=== PATIENT | male | born 1990 | race Caucasian/White ===

== ENCOUNTER 2024-03-23 19:56 | Emergency (ER) | payer SELFPAY ==
[2024-03-23] VITALS (13 sets, daily range): BP systolic 135–139; BP diastolic 74–82; PULSE 76–89; TEMP 36.8; O2SAT 95–97; BMI 24.4
--- NOTE | 2024-03-23 20:13 | ECG_ITS ---
[facility] Test Date: 2024-03-23 Pat Name: YOLANDA KRAMER Department: Room: - Gender: Male Method Consultant: : 1990 Requested By: SAVANNAH HART Order Number: [id number] Reading MD: MARJORIE HENRY Measurements Intervals [place] Rate: 85 P: 54 IN: 160 QRS: 74 QRSD: 90 T: 36 QT: 336 QTc: 378 Interpretive Statements 1100 Sinus rhythm 9110 normal ECG Compared to ECG 02/10/2018 00:58:56 No significant changes Electronically Signed On 03-24-2024 7:22:42 EDT by MARJORIE HENRY
--- NOTE | 2024-03-23 20:17 | ED.CHESTPAI1 ---
Documented by User: RODOLFO Thomas 03/23/24 21:11 HPI - Chest Pain General Chief Complaint: Chest Pain Stated Complaint: Chest Pain Time Seen by Provider: 03/23/24 19:58 Source: patient Mode of arrival: walk-in Limitations: no limitations History of Present Illness HPI narrative: Patient is a 33-year-old male who presents to the emergency department for multiple complaints over the last 2 days. He states yesterday he developed body aches, headache and subjective fever. He states today he noted right-sided chest pain that is worse with deep breathing. He denies any significant cough, he has had no sputum production or hemoptysis. He denies abdominal pain, vomiting or diarrhea. He has no history of any heart or lung problems that he is aware of. Related Data Previous Rx's ?Medication ?Instructions ?Recorded ketorolac 10 mg tablet 10 mg PO TID PRN pain #10 tabs 03/23/24 prednisone 20 mg tablet 60 mg (3 x 20 mg) PO DAILY 3 days 03/23/24 #9 tabs prednisone 20 mg tablet 60 mg (3 x 20 mg) PO DAILY 3 days 03/23/24 #9 tabs Allergies Allergy/AdvReac Type Severity Reaction Status Date / Time No Known Drug Allergies Allergy Verified 03/23/24 20:03 Review of Systems ROS Constitutional Denies: fever or chills Ears, nose, mouth, and throat Denies: throat pain or nasal congestion Cardiovascular Reports: chest pain Respiratory Denies: shortness of breath or cough Gastrointestinal Denies: abdominal pain, nausea or vomiting Musculoskeletal Denies: back pain or neck pain Integumentary/Breast Denies: rash Neurological Reports: headache; Denies: numbness in extremities or weakness in extremities Hematologic/Lymphatic Denies: easy bruising or easy bleeding Exam Narrative Exam Narrative: Gen.: Awake, alert, in no distress Head: Normocephalic, atraumatic ENT: Moist mucous membranes Respiratory: No respiratory distress, lungs clear bilaterally; no rashes or color change to the chest wall Cardio: Regular rate and rhythm Gastrointestinal: Abdomen is soft, nondistended and nontender to palpation Extremities: Moves extremities equally, no pedal edema Psych: Normal mood and affect Neuro: No focal neuro deficit Skin: Warm, dry, intact Constitutional Vital Signs, click to edit/add: Last Vital Signs Temp 98.3 F 03/23/24 20:00 Pulse 77 03/23/24 21:29 Resp 23 H 03/23/24 21:20 BP 139/74 03/23/24 21:29 Pulse Ox 96 03/23/24 21:29 O2 Del Method Room Air 03/23/24 20:00 Course Vital Signs Vital signs: Vital Signs Temperature 98.3 F 03/23/24 20:00 Pulse Rate 85 03/23/24 20:00 Respiratory Rate 16 03/23/24 20:00 Blood Pressure 135/82 03/23/24 20:00 Pulse Oximetry 96 03/23/24 20:00 Oxygen Delivery Method Room Air 03/23/24 20:00 Temperature 98.3 F 03/23/24 20:00 Pulse Rate 77 03/23/24 21:29 Respiratory Rate 23 H 03/23/24 21:20 Blood Pressure 139/74 03/23/24 21:29 Pulse Oximetry 96 03/23/24 21:29 Oxygen Delivery Method Room Air 03/23/24 20:00 MDM - Chest Pain MDM Narrative Medical decision making narrative: Patient given IV fluids, Solu-Medrol and Toradol for symptoms. COVID test is negative. Vital signs are within normal limits. Laboratory tests reviewed and noted including D-dimer, troponin, lipase and LFTs. These tests are within normal limits. Chest x-ray obtained, no evidence of acute cardiopulmonary changes. Patient discharged home to follow-up with PCP. NSAID and prednisone given for home. Return to the ER if symptoms change or worsen SUPERVISED APC VISIT, PHYSICIAN ATTESTATION: Based on the medical record the care appears appropriate. ? Medical Records Data Attestation: I reviewed the patient's medical records. Lab Data Attestation: I reviewed the patient's lab results. Labs: Lab Results 03/23/24 03/23/24 Range/Units 20:20 20:21 WBC 6.4 (4.0-11.0) 10^3/uL RBC 4.95 (4.70-6.10) 10^6/uL Hgb 15.0 (14.0-18.0) g/dL Hct 43.6 (42.0-54.0) % MCV 88.1 (80.0-94.0) fL MCH 30.3 (25.9-34.0) pg MCHC 34.4 (29.9-35.2) g/dL RDW 12.7 (11.0-15.0) % Plt Count 173 (150-450) 10^3/uL MPV 9.0 L (9.5-13.5) fL Neut % (Auto) 63.1 (43.0-75.0) % Lymph % (Auto) 21.7 (20.5-60.0) % [place] % (Auto) 11.6 (1.7-12.0) % Eos % (Auto) 1.6 (0.9-7.0) % Baso % (Auto) 0.9 (0.2-2.0) % Neut # (Auto) 4.0 (1.4-6.5) 10^3/uL Lymph # (Auto) 1.4 (1.2-3.8) 10^3/uL [place] # (Auto) 0.7 (0.3-0.8) 10^3/uL Eos # (Auto) 0.1 (0.0-0.7) 10^3/uL Baso # (Auto) 0.1 (0.0-0.1) 10^3/uL Abs Immat Gran (auto) 0.07 H (0.00-0.03) 10^3/uL Imm/Tot Granulo (auto) 1.1 H (0.0-0.5) % PT 11.1 (9.0-11.6) sec INR 1.05 D-Dimer 0.36 (<=0.59) mg/L FEU Sodium 139 (136-145) mmol/L Potassium 3.6 (3.5-5.1) mmol/L Chloride 101 (98-107) mmol/L Carbon Dioxide 27.1 (21.0-32.0) mmol/L Anion Gap 14.5 BUN 7.0 (7.0-18.0) mg/dL Creatinine 0.94 (0.70-1.30) mg/dL Est GFR ( Amer) >60 (>=60) Est GFR (Non-Af Amer) >60 (>=60) BUN/Creatinine Ratio 7.4 Glucose 110 H (74-106) mg/dL Calcium 8.9 (8.5-10.1) mg/dL Total Bilirubin 0.7 (0.2-1.0) mg/dL AST 17 (15-37) U/L ALT 24 (16-63) U/L Alkaline Phosphatase 78 (46-116) U/L Troponin I High Sens 4.0 (4.0-76.1) pg/mL NT-Pro-B Natriuret Pep 26.0 (<=450.0) pg/mL Total Protein 7.3 (6.4-8.2) g/dL Albumin 3.9 (3.4-5.0) g/dL Globulin 3.4 g/dL Albumin/Globulin Ratio 1.1 Lipase 36.0 (16.0-77.0) U/L SARS-CoV-2 Ag (CV2AG) Negative (NEGATIVE) Imaging Data Chest x-ray: Attestation: I have reviewed the pertinent imaging results. Radiologist's impression: ITS Impressions Chest X-Ray 03/23/24 20:49 IMPRESSION: Negative chest x-ray, no acute findings. Electronically authenticated by: ANGEL WAGNER Date: 03/23/2024 21:53 ECG Data Attestation: I personally reviewed and interpreted this ECG as follows: (Sinus rhythm at a rate of 85, no acute ST elevation or ectopy. EKG reviewed by attending physician) Heart Score History: Slightly/Non-Suspicious ECG: Normal Age: <45 years Risk Factors: No Risk Factors Troponin: <Normal Limit Total Heart Score Recommendations & Risks:: 0 Discharge Plan Discharge Stand Alone Forms: Portal Instructions Chief Complaint: Chest Pain Clinical Impression: Acute viral syndrome, Chest pain Patient Disposition: Home, Self-Care Time of Disposition Decision: 21:07 Condition: Good Prescriptions / Home Meds: New prednisone 20 mg tablet 60 mg PO DAILY 3 Days Qty: 9 0RF ketorolac 10 mg tablet 10 mg PO TID PRN (Reason: pain) Qty: 10 0RF prednisone 20 mg tablet 60 mg PO DAILY 3 Days Qty: 9 0RF Print Language: Belarusian Instructions: Chest Pain (ED), Viral Syndrome (ED) Referrals: Margie Roberto MD [Primary Care Provider] - 1 week Discharge Date/Time: 03/23/24 21:35 Documented by User: Alfreda Presley MD 03/24/24 06:38 HPI - Chest Pain General Chief Complaint: Chest Pain Stated Complaint: Chest Pain Time Seen by Provider: 03/23/24 19:58 Related Data Previous Rx's ?Medication ?Instructions ?Recorded ketorolac 10 mg tablet 10 mg PO TID PRN pain #10 tabs 03/23/24 prednisone 20 mg tablet 60 mg (3 x 20 mg) PO DAILY 3 days 03/23/24 #9 tabs prednisone 20 mg tablet 60 mg (3 x 20 mg) PO DAILY 3 days 03/23/24 #9 tabs Allergies Allergy/AdvReac Type Severity Reaction Status Date / Time No Known Drug Allergies Allergy Verified 03/23/24 20:03 Exam Constitutional Vital Signs, click to edit/add: Last Vital Signs Temp 98.3 F 03/23/24 20:00 Pulse 77 03/23/24 21:29 Resp 23 H 03/23/24 21:20 BP 139/74 03/23/24 21:29 Pulse Ox 96 03/23/24 21:29 O2 Del Method Room Air 03/23/24 20:00 Course Vital Signs Vital signs: Vital Signs Temperature 98.3 F 03/23/24 20:00 Pulse Rate 85 03/23/24 20:00 Respiratory Rate 16 03/23/24 20:00 Blood Pressure 135/82 03/23/24 20:00 Pulse Oximetry 96 03/23/24 20:00 Oxygen Delivery Method Room Air 03/23/24 20:00 Temperature 98.3 F 03/23/24 20:00 Pulse Rate 77 03/23/24 21:29 Respiratory Rate 23 H 03/23/24 21:20 Blood Pressure 139/74 03/23/24 21:29 Pulse Oximetry 96 03/23/24 21:29 Oxygen Delivery Method Room Air 03/23/24 20:00 MDM - Chest Pain Lab Data Labs: Lab Results 03/23/24 03/23/24 Range/Units 20:20 20:21 WBC 6.4 (4.0-11.0) 10^3/uL RBC 4.95 (4.70-6.10) 10^6/uL Hgb 15.0 (14.0-18.0) g/dL Hct 43.6 (42.0-54.0) % MCV 88.1 (80.0-94.0) fL MCH 30.3 (25.9-34.0) pg MCHC 34.4 (29.9-35.2) g/dL RDW 12.7 (11.0-15.0) % Plt Count 173 (150-450) 10^3/uL MPV 9.0 L (9.5-13.5) fL Neut % (Auto) 63.1 (43.0-75.0) % Lymph % (Auto) 21.7 (20.5-60.0) % [place] % (Auto) 11.6 (1.7-12.0) % Eos % (Auto) 1.6 (0.9-7.0) % Baso % (Auto) 0.9 (0.2-2.0) % Neut # (Auto) 4.0 (1.4-6.5) 10^3/uL Lymph # (Auto) 1.4 (1.2-3.8) 10^3/uL [place] # (Auto) 0.7 (0.3-0.8) 10^3/uL Eos # (Auto) 0.1 (0.0-0.7) 10^3/uL Baso # (Auto) 0.1 (0.0-0.1) 10^3/uL Abs Immat Gran (auto) 0.07 H (0.00-0.03) 10^3/uL Imm/Tot Granulo (auto) 1.1 H (0.0-0.5) % PT 11.1 (9.0-11.6) sec INR 1.05 D-Dimer 0.36 (<=0.59) mg/L FEU Sodium 139 (136-145) mmol/L Potassium 3.6 (3.5-5.1) mmol/L Chloride 101 (98-107) mmol/L Carbon Dioxide 27.1 (21.0-32.0) mmol/L Anion Gap 14.5 BUN 7.0 (7.0-18.0) mg/dL Creatinine 0.94 (0.70-1.30) mg/dL Est GFR ( Amer) >60 (>=60) Est GFR (Non-Af Amer) >60 (>=60) BUN/Creatinine Ratio 7.4 Glucose 110 H (74-106) mg/dL Calcium 8.9 (8.5-10.1) mg/dL Total Bilirubin 0.7 (0.2-1.0) mg/dL AST 17 (15-37) U/L ALT 24 (16-63) U/L Alkaline Phosphatase 78 (46-116) U/L Troponin I High Sens 4.0 (4.0-76.1) pg/mL NT-Pro-B Natriuret Pep 26.0 (<=450.0) pg/mL Total Protein 7.3 (6.4-8.2) g/dL Albumin 3.9 (3.4-5.0) g/dL Globulin 3.4 g/dL Albumin/Globulin Ratio 1.1 Lipase 36.0 (16.0-77.0) U/L SARS-CoV-2 Ag (CV2AG) Negative (NEGATIVE) Imaging Data Chest x-ray: Radiologist's impression: ITS Impressions Chest X-Ray 03/23/24 20:49 IMPRESSION: Negative chest x-ray, no acute findings. Electronically authenticated by: ANGEL WAGNER Date: 03/23/2024 21:53 Heart Score Total Heart Score Recommendations & Risks:: 0 Discharge Plan Discharge Stand Alone Forms: Portal Instructions Chief Complaint: Chest Pain Clinical Impression: Acute viral syndrome, Chest pain Patient Disposition: Home, Self-Care Time of Disposition Decision: 21:07 Condition: Good Prescriptions / Home Meds: New prednisone 20 mg tablet 60 mg PO DAILY 3 Days Qty: 9 0RF ketorolac 10 mg tablet 10 mg PO TID PRN (Reason: pain) Qty: 10 0RF prednisone 20 mg tablet 60 mg PO DAILY 3 Days Qty: 9 0RF Print Language: Bel[place]ian Instructions: Chest Pain (ED), Viral Syndrome (ED) Referrals: Margie Roberto MD [Primary Care Provider] - 1 week Discharge Date/Time: 03/23/24 21:35
[2024-03-23 20:25] LABS: Basophils Absolute Auto 0.1 10^3/uL (0.0-0.1); Basophils Percent Auto 0.9 % (0.2-2.0); Eosinophils Absolute Auto 0.1 10^3/uL (0.0-0.7); Eosinophils Percent Auto 1.6 % (0.9-7.0); Hematocrit 43.6 % (42.0-54.0); Immature Granulocytes Abs Auto 0.07 10^3/uL (0.00-0.03); Immature Granulocytes Pct Auto 1.1 % (0.0-0.5); Lymphocytes Absolute Auto 1.4 10^3/uL (1.2-3.8); Lymphocytes Percent Auto 21.7 % (20.5-60.0); Mean Corpuscular HGB Conc 34.4 g/dL (29.9-35.2); Mean Corpuscular Hemoglobin 30.3 pg (25.9-34.0); Mean Corpuscular Volume 88.1 fL (80.0-94.0); Monocytes Absolute Auto 0.7 10^3/uL (0.3-0.8); Monocytes Percent Auto 11.6 % (1.7-12.0); Neutrophils Percent Auto 63.1 % (43.0-75.0); Platelet Count 173 10^3/uL (150-450); Red Blood Count 4.95 10^6/uL (4.70-6.10); Red Cell Distribution Width 12.7 % (11.0-15.0); White Blood Count 6.4 10^3/uL (4.0-11.0)
[2024-03-23 20:37] LABS: Internal Control Within Normal Limits; SARS-CoV-2 Ag NEGATIVE (NEGATIVE)
[2024-03-23 20:40] LABS: D Dimer 0.36 mg/L FEU (<=0.59); INR 1.05; Prothrombin Time 11.1 sec (9.0-11.6)
[2024-03-23 20:41] LABS: Alanine Aminotransferase 24 U/L (16-63); Albumin Globulin Ratio 1.1; Albumin Level 3.9 g/dL (3.4-5.0); Alkaline Phosphatase 78 U/L (46-116); Anion Gap 14.5; Aspartate Amino Transferase 17 U/L (15-37); BUN Creatinine Ratio 7.4; Bilirubin Total 0.7 mg/dL (0.2-1.0); Calcium 8.9 mg/dL (8.5-10.1); Carbon Dioxide 27.1 mmol/L (21.0-32.0); Chloride 101 mmol/L (98-107); Estimated GFR (African America >60 (>=60); Estimated GFR (Non-African Ame >60 (>=60); Globulin 3.4 g/dL; Glucose 110 mg/dL (74-106); Potassium 3.6 mmol/L (3.5-5.1); Sodium 139 mmol/L (136-145); Total Protein 7.3 g/dL (6.4-8.2)
[2024-03-23] MEDS: 0.9 % SODIUM CHLORIDE 1,000 ML 999 ML IV (20:42)
[2024-03-23] MEDS: METHYLPREDNISOLONE SOD SUCC PF 125 MG/2 ML VIAL IVP (20:44)
[2024-03-23] MEDS: KETOROLAC TROMETHAMINE 30 MG/ML VIAL IVP (20:44)
--- NOTE | 2024-03-23 20:49 | XR_ITS ---
[address] [address] Patient Name: YOLANDA KRAMER MRN: [id number] date: 1990 Sex: M Assigned Patient Location: ER Current Patient Location: Accession/Order Number: [id number] Exam Date: 03/23/2024 21:00 Report Date: 03/23/2024 21:53 At the request of: WHIT ASNTAMARIA Procedure: XR chest 1V EXAM: XR chest 1V HISTORY: Chest pain COMPARISON: None. TECHNIQUE: AP portable upright chest x-ray FINDINGS: Clear lungs without infiltrate or edema. Normal heart size and mediastinal contour. No pleural effusion or pneumothorax. XR/XR chest 1V IMPRESSION: Negative chest x-ray, no acute findings. Electronically authenticated by: ANGEL WAGNER Date: 03/23/2024 21:53
== END 2024-03-23 21:35 | disposition home or self-care (01) ==
PROVIDERS: Physician Assistant; Emergency Provider Emergency Medicine; PCP Family Medicine
DX: R07.9 Chest pain, unspecified (principal); B34.9 Viral infection, unspecified
CPT/HCPCS: 36415; 71045; 80053; 83690; 83880; 84484; 85025; 85378; 85610; 87811; 93005; 99285; J1885; J2919

== ENCOUNTER 2024-03-30 03:32 | Emergency (ER) | payer SELFPAY ==
--- OUTSIDE RECORDS SUMMARY | 2024-03-30 03:36 | XMS_ITS ---
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 Name Role Phone STRUS, TAI Unavailable Unavailable STRUS, TAI Unavailable Unavailable REQUEST, NONE LISTED Unavailable Unavailable WESTCHARLES V Unavailable Unavailable STRUS, TAI Unavailable Unavailable KUNS, SHANE Unavailable Unavailable KUNS, SHANE Unavailable Unavailable KUNS, SHANE Unavailable Unavailable KUNS, SHANE Unavailable Unavailable KUNS, SHANE Unavailable Unavailable KUNS, SHANE Unavailable Unavailable KUNS, SHANE Unavailable Unavailable KUNS, SHANE Unavailable Unavailable KUNS, SHANE Unavailable Unavailable Encounters Encounter Date Encounter Type Care Provider Facility Start: 03-04-2018 Ambulatory SHANE KUNS Facility:H 1 Start: 02-23-2018 End: 02-24-2018 Ambulatory SHANE KUNS Facility:H1 Start: 02-16-2018 End: 02-17-2018 Ambulatory SHANE KUNS Facility:H1 Start: 02-10-2018 End: 02-10-2018 Ambulatory TAI LANIER Facility:H1 Payers Date Payer Category Payer Self-pay [id number] 1957 Unknown [id number] Problems Problem Classification Problem Date Documented Da te Episodic/Chronic Anxiety disorders (1 source) Anxiety disorder, unspecified; Translations: [ANXIETY DISORDER UNSPECIFIED] Onset: 02-14-2018 Chronic Essential hypertension (1 source) Essential (primary) hypertension; Translations: [ESSENTIAL PRIMARY HYPERTENSION] Onset: 02-14-2018 Chronic Fluid and electrolyte disorders (1 source) Hypokalemia; Translations: [HYPOKALEMIA] Onset: 02-14-2018 Episodic Nonspecific chest pain (8 sources) Other chest pain; Translations: [Chest pain, unspecified] Onset: 02-10-2018 Episodic Unclassified (1 source) Family history of ischemic heart disease and other diseases of the circulatory system; Translations: [FAM HX ISCHEMIC HRT DZ OTH DZ CIRC] Onset: 02-23-2018 Episodic Viral infection (4 sources) Infectious mononucleosis, unspecified without complication; Translations: [INFECTIOUS MONO UNS W/O COMP] Onset: 02-23-2018 Episodic Results Test Name Value Interpretation Reference Range Facility Coding Summary.on 06-18-2021 Coding Summary. CD:[id number] Gh 0bWw+PGhlYWQ+UM4FCEGfM 70gdELfjM0MW7vGIF8TSMP MZWOHHN0VPJ8seCU5LLwvQ 2VybiAv AhhiwSFqVN68WKk2CFW9hL mzHSshkD3azLBzJ2n8UaLm FI23cH83ACvhSFSdYjX0Rx ZpbjsgbWFy X1ytJzOheNIlOtt+PHRhYm xlIHdpZHRoPScxMDAlJyBz fJtfEH5zNp8xFNYnFMTqcC xhcHNlOiBj j1arXBBtODfqII4kxPtfM0 OhxBL7NYHku2e7Mp56yZC+ JBYeVJR7kQnfDExra956Zs Bge2ccRGK9 wVOzHYsxWXM3V64yc7W2DY IoRCQxDJW0bDJ8wI7ceDom tjjpN9JhgWQdMgW7NLR4kA EukJ8hdWrw gmialL6yRcb+F74IXQ3COG XVAQ7OUac3I7DuQaxlpKR+ YT74GONuQC58rKQmyPQie4 eeqRe9IyYc SYOcSOM9bDceQYjto2LdMF OuE34fbMMip9X2SGNkgCaa uEBqSqGgiEM8uT1wZAefhr zan7gpfmlg Mfrva2aout47uH16O22tMZ umSRPiZKJ6OILhMSVgxLoy sj7ppG5uBz7+GYvem1kne4 vkcMu0UcSq AGThpqSzoOtwBNJ7v5TaSc 80P8SzgWsdy2XzBql9bc26 vYPxb8J4wFP1KKsxUEHjwM 8tJPhpGzD8 AEMaWhRvoU24lBAuBTjvLx 1mzIszvCojUR0oKPHwseem ZBYjhI6tXAUceNWnfSquKK 4wNTBpbjtm i024JsLxWDJ7MIOtjHEaK7 YwtE3wZaAtOBWaJHFlC4Et rOHcVZcpR458FAedVyH7IS CobiXdO6Ub GSIwoMakZwL9c3Q0Ax8Ik2 IozzpfLDX3ISppMHPbLeGw NyGfEmR9L9WdAub1XOYhoZ uiIQ7mJ0Zk VOAcbwzkdwmdqIO9TUPfQF XgcY10cULaKPvvEq6ga0G1 v677LKMdMGDzeE65Bj5oxP ogMTBwdCBU rO5nmidrr7hzifsxCuXiKA IeTAr0IZw9HKTdnTxtXhWa XCE6XxG2YMN0hLPssY8leE zyqtesxX8j Oyc+V24nzV5sGEM8YEN6xi elRMNsfyFfBL28FU48A8So PjwvdGFibGU+PGRpdiBzdH brGW7lQnGl g1ckz6BbJLbxG8TcQHTtKQ wdDpy1DYDqXIJ1aPJ8sR9d RZDeLVvqz5C3dWI3L4Pcwv Dvri8qk9rc WSOkBZjoK54roVKnf5G0LE QznZY9DWLudEqxZtZqjR84 Oyc+MXMvxDjvs3GoYwbet7 agt1xuoHs2 RxLcHRMmuyNcaWshLGM5v5 UiIx31P17sZQpqQDBkYMAg BOLmUSPaoHksur1rcE4mGb 8+PGNvbCB3 wXH4rL0mNAJjIbP8PAjlY8 36UsYabIGkGjmfn0uxn0ym mKw1ShLnNMQtokBpySmeDL F1k3KyDu78 C11gSHlrLUOgELKdXFSrBT CndAguwk0fjY5bGe8+PC9j y1esxw44tD49oBB+PHRkIH G8eZwhYAkb EEJxuV0pCXyzPvN2BOOrYx DkmL51pMFiVLkeUo8cyRgq wVfnWZ9aDRYbpukqh199Hs Qiv7mmPTGn xBJuEHjmIRC5A01nm0B6NP TnWASsUXN2cPP0hV8kgFwu bjogbGVmdDsgdmVydGljYW juSJshS109 IHRvcDsnPlBhdGllbnQgTm JvBSf3F1DcLgi1HSBmuOel IN6fdBBbXJzrKv1icJrcfQ obPN0wAJBz ibbqy576FbOrn4dqAELncQ XfIJnlRVZ5E32kx8K1EJUj DIIcSTV4bYC5uU3kjXmiqf ogbGVmdDsg jrUzqDgkYDjrPPtvI346BH RvcDsnPkJpcnRoIERhdGU6 LE03CG36kVQhm8Q1qPX6V4 BhZGRpbmct mflfbNA4AIEoCZZfwH66Wo 3elGkkCk1bBPZqAGZ1OSEr wDAiW7VhjC1sZpQhFINrDS GuY3UbaTMe NRuiR211CQlwKbT8FSOscn WvN3NcQMKshKkwUwJ0i2R0 Nq9YI3L8NR11HS64hLZtw8 Y9mPS4T9Vw SNJwliezinngiLM0KALsUO ZxnP82Yd4gtBypOh1lTFQz JYE2BQVlePKeC3NfiX7aFy AjMDAwMDAw F8IfpDEjKIveP644XMxuGy J6ZJRjhdJhB1OiOZNsnXxm KlZ4d6G2Cg0RKBw0AK61IQ 26kWWvs2N0 jBI2D0MeAAJmotzypcmgtW S1ZTKiZOXeyP93Wq5jqLgz Pl2aRYXcZYQ3FPXoiGZdZ5 KjeY6iTqMa KOTcJLZwQ0QdxCHaCYhkY3 76LEjrRmA8VEAygdCgE8Xt YZIduRpzRjI2d6P0Tu1QZW QdSH39RJV3 fEA9DF52EX35Y2ZxTbjdvD FibGU+PHRhYmxlIHdpZHRo JPfiSECkYmShxWdtNI0eNk 9yZGVyLWNv mPczvQBuTqMpq7mvGNNfCK pxXO5ucKfmC7JgnMW5IAVf a2l0Mq45H97eP8FwhQD+PG ZblZL0iSG8 nA4lGxZzWzC4QBpjY776Aa GmpCCqJarjo1bwm6givVk5 HyC5HTElxrChnHtiRJZ8w9 BsEw75F58d IHdpZHRoPSIxNSUiIHZhbG jxgc3dsZ4cFp6+PGNvbCB3 xFL5iP9sEnTyUxD6OXqyF3 49InRvcCIv Cvvjl4fga4lreOb1AgCoXQ KqqpUzmSnjDPT8m4WxEl92 S4EpxEpxm1NaZlq3of16iP Uhg1A2hVR4 Y7LrBZHxquqmoVJqtPkpLU 9uEEBboatoPBOwbA9oKGLt H1m4DoSgJyZ0CHugM6Twfj T8TLYxkNNo JFnqPBC2C24rp0H5TPQlJY CbSCY0hSA4vU1lzArcllpn bGVmdDsgdmVydGljYWwtYW hcZ943XMXl fMcmVPRmuA7dUZAsqXGfnY qkWR9xPBQhdgecXiqQKICB Dt0ABDLMJRChYWGZZVXwOr wvdGQ+PHRk TCI4aPheOTtjPKIyaY4vEU HmH8b2TnTlBjG6SJmpV9Ut PSAtxcbpAp72uP2uBoXeCn M8DNykA3Hi iiF9QXLepGKkYOimKEJ4X4 9nb7Z7ZXZrYITsQBN6mFY7 dO4voDewudkkbHYppFcmvk VydGljYWwt NJqwZ388YKEdnWaaNgW5Og K6PsM6JTX6U9SvZqd3YCIn wXgsHW6rxOKoNNriWx6tiX xjoNwiSD1e TAJlyeanEJJxxF0vVSUyoC RbgWofJQ7bMWWzxixbk175 LaQcYAV9VJDsnHGxJ7WuqZ 9yOiAjMDAw NRPaG5XmfBTvTMbpV541UU hsClP6JHRglpGuO8HcSEIz xOulFnD4l3Q7Ra8cBBUNKZ FyczwvdGQ+ NTYgLNM0fOtpETidWGGdlP 9jOFSsU9c7IeXxHgI4ZTtv W9WvABSobogtVn52yF1gXt UsUlU6UIhy N1RcdcM9MNVkvVOjAAmiOE B7T30sr5P5RDWxJOEqTVE2 uES5fT6ucNphpvkwdMObhT sgdmVydGlj NMemWAnrC564PFVpnTbdVk 5doNG2V8ZkHmn2LXDxiWwy PY3hiMSqNYyoSo7zwVsqeA vwWS6eSMUj wdvxQUCajW4nEQZyjDEwjV joNQ4iWJAtscrau180YoEh YGU3MCGioNCvG5OzeJ9gFi AjMDAwMDAw B5RrgTTxQJpmH448MIzaMk H9RFCatwUiM0SwYRDuyTki YnR2u7I3Pk3RDAAqSTAinN IiXyE2W7Nt PjwvdHI+QC75TEOpCF56yX PraDJvm3dspFn5WdFtGHCz LXG4kHrrXFwkk7NuRLToN1 9rvREcg0Q4 IXNljHyteMSqOiGcpNY1tZ 1pDUtcotxna5chyghcNuap u3njpx86aF89P93aAEevBG RoPSIzMCUi BRUsjRbhgr6ikO5eEw7+PG TnnAY9qDW2mF7nSuSwCbS1 ZEtyI825IhMamYLsVgmrt7 kxk4tveAc4 VrXgSDTqjsCioUlbCPA1i7 AsEa97C92vEJuqJZTaQMIv MVTzKFKkeKdgkc8nqN3vUc 8+QG0rv3ls ac30bM01xOT+TMTqTZB9gC clMQpdMPPchY9zHYsyTjH7 IKZeVzPtyP13zSFuDEtoPn 1yaWdodDog RF2bPUWlckbrm036LsLzm8 pwUNApoWRwIDfrCTZ8M03j f5K4OBVlSIBlDOU9lSX5dY 1hbGlnbjog bGVmdDsgdmVydGljYWwtYW hwK259YBEkaNfcWcOlxMJv X1dcziGJJQ4uKjepcOO+PH PnTAO6hFeb BMxiYDAfeL8iDYLpA2k7Je EeAsZ6PClcJ0WcgtT3XFRe fOQwFAIunMZGgF9edugln1 xvcjogIzAw GPCuRNu3EWm8QEQpqSinFx EhSSS4JxZ7KUR7qEUpfI1m rCciexmziX2yCbs+RklOOj wvdGQ+PHRk SNP9mYceSEyaBFCubQ0vKL PeJ2n3FnVzSpN2NMooQ7Bc tlF5JTDhaCWkLGTmiECMcM 5phenvo6fi jntlJkVsBXEiWSi7PLq8UZ ZfoNenVuThYMG2ByA2STG8 zQIbeF7svBcbknbdqL8yDn c+TVJOOjwv dGQ+DDHjDLB1bBaqZTdxRH ZfxN7oJKDuG6y2JkClUmK5 XCpfS9BibjY4JYDdlWEsCG JiaFCDtV2b kfvub0aqjtzxVkPaSXPePM k5ZSb8FBUenLvfWwVaIAV8 YpW2LPS1fGYeqJ1vpShlkk uldE3qXtk+ QQX0YDI3LG93BU67R8BzLm wvdGFibGU+PHRhYmxlIHdp ZHRoPScxMDAlJyBzdHlsZT 3xUp6iPUFa LWNv (more content not included)... Normal [facility] Consent for Procedure/Surger yon 06-06-2021 Consent for Procedure/Surgery [id number]. [id number]:127 Normal [facility] Urology Office/Clinic Noteon 06-05-2021 Urology Office/Clinic Note Chief Complaint Pt is here for a vasectomy HPI Staff Yolanda is a 31 y.o. male here for a vasectomy. History of Present Illness Pt is here for Vasectomy Review of Systems PHQ Score Initial Depression Screen Score: 0 Physical Exam Vitals & Measurements HR: 77(Peripheral) BP: 140/87 HT: 182.0 cm HT: 182 cm WT: 89.0 kg WT: 89 kg BMI: 26.87 Procedure Operative Information Anesthesia Type: Local Procedure: Bilateral Segmental Vasectomy Complications: None Surgical risks, benefits, details of the procedure have been explained to the patient. Full informed consent has been obtained. Intraoperative Information The patient is brought back to the operating room and placed in the supine position. He is prepped appropriately and draped. The skin and vas deferens are then anesthetized and the incision is made and carried down through the scrotal skin down to the level of the vas deferens which has been isolated. The bilateral segmental vasectomy is performed and the proximal and distal ends are ligated, isolated from each other, and allowed to fall back into the scrotal incision. The skin is then closed with interrupted sutures after hemostasis is achieved with electrocautery. Postoperative Information He tolerated the procedure well and is subsequently discharged home on oral antibiotics and with the discharge instructions. Assessment/Plan Will return for follow up in 2 weeks 1. Encounter for vasectomy (Z30.2: Encounter for sterilization) The patient tolerated the procedure well without complications. He should refrain from strenuous activity for the next 4-5 days and ice the scrotum as needed. The antibiotic course should be completed. The post-vasectomy instruction sheet is given to the patient. 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 Pain medicines have been provided. He is aware that he is not sterile until he has a negative semen analysis which will be checked after about two months and after 20-30 ejaculations. He should deliver the semen specimen to the lab within 30 min. of ejaculation and he will call one week later to get the results. Follow-up With When Contact Information Barrington SCHUMACHER MD, URL In 2 weeks 06/19/2021 EDT Additional Instructions: Patient Education Vasectomy Vasectomy, Care After I, Cheyenne Hurd, personally scribed for Dr. Schumacher on 06/05/2021 13:50:22. . Documentation recorded by the scribe, Cheyenne Gutierrez, accurately reflects the services(s) I performed and decisions made by me. Authenticated by Dr. Schumacher on 06/05/2021 13:59:25. Problem List/Past Medical History Ongoing Encounter for vasectomy Vasectomy evaluation Historical No qualifying data Procedure/Surgical History Vasectomy (06/05/2021). Medications Keflex 500 mg Cap, 500 mg= 1 cap(s), Oral, q12hr Fanshawe 325 mg-5 mg oral tablet, 1 tab(s), Oral, q6hr Valium 5 mg Tab, 5 mg= 1 tab(s), Oral, Daily Allergies No Known Medication Allergies Social History Tobacco Never (less than 100 in lifetime) Tobacco Use:. Never Smokeless Tobacco Use:., 06/05/2021 Family History Arthritis: Mother. Heart disease: Father. High cholesterol: Father. Hypertension: Mother and Father. Normal [facility] Comment on above: Result Comment: Elec tronically Signed By: Barrington SCHUMACHER MD\.br\Date and Time Signed: 06/05/21 13:59 EDT\.br\Electronically Co-Signed By: Ortman, Cheyenne D\.br\Date and Time Co-Signed: 06/05/21 13:57 EDT Formson 04-30-2021 Forms [id number]:127 Normal [facility] Ambulatory Clinical Summaryo n 04-29-2021 Ambulatory Clinical Summary {[id number]}CD:[id number] Normal [facility] Ambulatory Clinical Summary {[id number]}CD:[id number] Normal [facility] CBC W MANUAL DIFFon 02-24-20 18 BAND # Normal 0.0-0.3 [facility] Comment on above: Performed By: #### Jo ROPER ####[facility] [address] [place] [address] Camila BAND % Normal 0-5 [facility] Comment on above: Performed By: #### Jo ROPER ####[facility] Tamgzkcskd4122 [address] [place] BASOM % 0.0 % Critically low 0.2-2.0 [facility] Comment on above: Performed By: #### Jo ROPER ####[facility] Dzgfguyqas0260 [address] [place] Basophils Auto #/vol (Bld) 0.00 103/ul Normal 0.00-0.10 [facility] Comment on above: Performed By: #### Jo ROPER ####[facility] Edrakkuwus47[address] Cam[place] BLAST # Normal [facility] Comment on above: Performed By: #### Jo ROPER ####[facility] Ncjgkvjdhb8874 [address] [place] BLAST % Normal [facility] Comment on above: Performed By: #### Jo ROPER ####[facility] [address] [place] [address] [place] Eosinophils 0.00 103/ul Normal 0.00-0.70 [facility] Comment on above: Performed By: #### Jo ROPER ####[facility] Ivhvtkukxt58[address] Cam[place] Eosinophils/100 leukocytes 0.0 % Critically low 0.9-7.0 [facility] Comment on above: Performed By: #### Jo ROPER ####[facility] Wkcbbmuspx5730 [address] [place] Erythrocyte distribution width Auto Ratio (RBC) 13.8 % Normal 11.0-15.0 [facility] Comment on above: Performed By: #### Jo ROPER ####[facility] Wfpyfdlscc2492 [address] [place] Erythrocytes (RBC) Normal [facility] Comment on above: Performed By: #### Jo ROPER ####[facility] C[address]cdid[address] [place] Erythrocytes (RBC) 4.68 106/ul Critically low 4.70-6.10 [facility] Comment on above: Performed By: #### Jo ROPER ####[facility] [address] [place] [address] [place] Hematocrit (HCT) 42.7 % Normal 42.0-54.0 [facility] Comment on above: Performed By: #### Jo ROPER ####[facility] Guhmvljbrt2926 [address] Jensen Hemoglobin mass conc (Bld) 16.0 g/dL Normal 14.0-18.0 [facility] Comment on above: Performed By: #### Jo ROPER ####[facility] [address] [place] [address] Lymphocytes 1.11 103/ul Normal [facility] Comment on above: Performed By: #### Jo ROPER ####[facility] [address] [place] [id number] Lymphocytes 6.04 103/ul Critically high 1.20-3.80 [facility] Comment on above: Performed By: #### Jo ROPER ####[facility] Crjhqqdaou5879 [place], [place] [address]Xnisbz Camila Lymphocytes/100 leukocytes 7 % Normal [facility] Comment on above: Performed By: #### Jo ROPER ####[facility] [address]yyut[address]urkr1613 [place], [place] [address]Qzbdso Camila Lymphocytes/100 leukocytes 38.0 % Normal 20.5-60.0 [facility] Comment on above: Performed By: #### Jo ROPER ####[facility] Set[address]tavecg[address] [place] [address] MCH 34.2 pg Critically high 25.9-34.0 [facility] Comment on above: Performed By: #### Jo ROPER ####[facility] [address]zb[address] [place] [address] Camila MCHC mass conc (RBC) 37.5 g/dL Critically high 29.9-35.2 [facility] Comment on above: Performed By: #### Jo ROPER ####[facility] K[address]beh[address] [place] [address] MCV 91.2 fL Normal 80.0-94.0 [facility] Comment on above: Performed By: #### Jo ROPER ####[facility] Qixguplfdi[address]7 [place] [address] METAMYELOCYTE # Normal [facility] Comment on above: Performed By: #### Jo ROPER ####[facility] K[address]f40[address] [place] [address] METAMYELOCYTE % Normal [facility] Comment on above: Performed By: #### Jo ROPER ####[facility] Z[address]clq[address] [place] [address] MONOM# 1.43 103/ul Critically high 0.30-0.80 [facility] Comment on above: Performed By: #### Jo ROPER ####[facility] Icowmrgsky4617 [place] [address] MONOM% 9.0 % Normal 1.7-12.0 [facility] Comment on above: Performed By: #### Jo ROPER ####[facility] Roxnzzpjcw4093 [place], [place] [address]Qvymtl Cam[place] MYELOCYTE # Normal [facility] Comment on above: Performed By: #### Jo ROPER ####[facility] Lasaajytvu6495 [place], [place] [address]Xgwzsw [place] MYELOCYTE % Normal [facility] Comment on above: Performed By: #### Jo ROPER ####[facility] Femdovmdtz5039 [place], [place] [address]Oelycd Cam[place] Platelet mean volume (PMV) 9.6 fL Normal 9.5-13.5 [facility] Comment on above: Performed By: #### Jo ROPER ####[facility] [address] [place], [place] [address] Platelets 108 103/ul Critically low 150-450 [facility] Comment on above: Performed By: #### Jo ROPER ####[facility] [address] [place], [place] [address] [place]ila SEG # 7.31 103/ul Critically high 1.40-6.50 [facility] Comment on above: Performed By: #### Jo ROPER ####[facility] [address] [place], [place] [address] Segmented Neutrophils/100 leukocytes 46.0 % Normal 43.0-75.0 [facility] Comment on above: Performed By: #### Jo ROPER ####[facility] S[address]odivbr[address]00 [place] [address] WBC (Leukocytes) 15.9 103/ul Critically high 4.0-11.0 [facility] Comment on above: Performed By: #### Jo ROPER ####[facility] Hqvvlhfqpt4622 [place] [address]ila WBC (Leukocytes) Normal 4.0-11.0 [facility] Comment on above: Performed By: #### Jo ROPER ####[facility] Kissqdrwkl4249 [address] [place] PROF 14(COMP METB)on 018 Alanine aminotransferase (ALT) 418 U/L Critically high 21-72 [facility] Comment on above: Performed By: #### C MP ####[facility] Nfizrjlwop[address] [place] [address] [place] Albumin 4.8 g/dL Normal 3.5-5.0 [facility] Comment on above: Performed By: #### C MP ####[facility] Rgbsiuexoo6[address] [place] Albumin/Globulin Ratio 1.1 {ratio} Normal [facility] Comment on above: Performed By: #### C MP ####[facility] Rzzyogsfbm1917 [address] [place] Alkaline phosphatase (ALP) 173 U/L Critically high 38-126 [facility] Comment on above: Performed By: #### C MP ####[facility] Qgcqwdhmwj7320 [address] [place] Anion gap 16.6 mmol/L Normal [facility] Comment on above: Performed By: #### C MP ####[facility] Oyecfuqxfo[address] [place] Aspartate aminotransferase (AST) 247 U/L Critically high 17-59 [facility] Comment on above: Performed By: #### C MP ####[facility] Khztsdotyq350[address] [place] Bilirubin Ql (U) 1.5 mg/dL Critically high 0.2-1.3 [facility] Comment on above: Performed By: #### C MP ####[facility] Zbzswmsaex6[address] [place] BUN/Creatinine Ratio 11.5 mg/mg Normal [facility] Comment on above: Performed By: #### C MP ####[facility] Voeelsoebk[address] [place] Calcium 9.2 mg/dL Normal 8.4-10.2 [facility] Comment on above: Performed By: #### C MP ####[facility] Hedhoaocgh7122 [place], [place] [address]Shrhtj Camila Chloride 100 mmol/L Normal 98-107 [facility] Comment on above: Performed By: #### C MP ####[facility] Mskyoonodc7234 [place], [place] [address]Dgjtcy Camila CO2 26.0 mmol/L Normal 22.0-30.0 [facility] Comment on above: Performed By: #### C MP ####[facility] Ehouhosccn7381 [place], [place] [address]Ocigsm [place] Creatinine 0.87 mg/dL Normal 0.66-1.25 [facility] Comment on above: Performed By: #### C MP ####[facility] Uvczdfchue0466 [place], [place] [address]Diheuu Camila eGFR (non-black) mL/min/{1.73_m2} Normal >=60 [facility] Comment on above: Performed By: #### C MP ####[facility] Vhzrffenlq6828 [place], [place] [address]Qivwaq [place] Globulin 4.3 g/dL Normal [facility] Comment on above: Performed By: #### C MP ####[facility] Pbqfsuurvj3179 [place], [place] [address]Wyggap Camila Glucose mass conc 99 mg/dL Normal 74-106 [facility] Comment on above: Performed By: #### C MP ####[facility] Navwiafaic5771 [place], [place] [address]Aadflm Camila Potassium molar conc 4.3 mmol/L Normal 3.4-5.0 [facility] Comment on above: Performed By: #### C MP ####[facility] [id number] [place], [place] [address]Vaxafn Camila Protein 9.1 g/dL Critically high 6.1-8.2 [facility] Comment on above: Performed By: #### C MP ####[facility] [id number] [place], [place] [address]Rvqoqb Camila Sodium 138 mmol/L Normal 137-145 [facility] Comment on above: Performed By: #### C MP ####[facility] [id number] [place], [place] [address]FmvbrxKatharina Jensen Urea nitrogen 10.0 mg/dL Normal 9.0-20.0 [facility] Comment on above: Performed By: #### C MP ####[facility] [address] [place], [place] [address]JczfubKatharina Jensen CARDIAC STRESS TESTon 2017 CARDIAC STRESS TEST CARDIAC TREADMILL STRESS TESTRequesting Physician: Dr. Shane RdzsProcedure Date: 1-18-77FCGQGZXN INFORMATION:A. INDICATION FOR STRESS TEST: Evaluation of a patient with complaint of chestpain.B. CARDIAC HISTORY AND RISK FACTORS: This is a 27 year-old white male with achief complaint of chest pain, previously evaluated in the ER. The patientindicates he's a current nonsmoker. There is no personal history ofcardiovascular disease. There is a family history of a father who had amyocardial infarction in his mid 40's.IIRESTING 12-LEAD ELECTROCARDIOGRAM: Sinus rhythm with a resting heart rate of87. The IA interval is 0.16, the QRS is 0.12 and the QT is 0.32. There is nosignificant axis deviation, pathological Q-waves, or chamber enlargement.III STRESS TEST:A. PROTOCOL: Cory protocol was followed.B.EXERCISE CAPACITY: The patient demonstrated good exercise capacity, heexercised for 9 minutes and 26 seconds achieving a maximum heart rate of 152,which is 89% of his maximum projected heart rate. He exercised into stage 4 ofthe Cory protocol equivalent to 4.2 mph, 16% grade and 10.1 METs. Hedemonstrated a normal heart rate response with normal heart rate recovery.C.BLOOD PRESSURE RESPONSE: Resting blood pressure was 108/60. Maximum bloodpressure was 152/74, and into recovery it was 126/66.D.RHYTHM: The patient demonstrated sinus rhythm throughout the study.E.ST-RESPONSE: There was no significant ST depression, elevation, or T-waveinversion.F.ISAURO ENT RESPONSE: The patient achieved target heart rate at the end of stage3 of the Cory protocol. As he was asymptomatic I allowed him to continue tostage 4. Approximately 26 seconds into stage 4, he complained of some legcramping and minimal shortness of breath. The study was ceased. Thesecomplaints resolved almost immediately after cessation of the exercise portion.The patient had no complaint of chest pain haylee to his chief complaint.IVINTERPRETA TION: This is a normal treadmill exercise test without objectiveevidence of myocardial ischemia. He demonstrated good exercise capacity withnormal heart rate and blood pressure response to exercise. The patient hadminimal symptoms at the end of the study including leg cramps and shortness ofbreath, which resolved in the resting phase; he had no reproducible chest painakin to his chief complaint. Scott treadmill score was 9.5, which places him priscila low risk category. Clinical correlation is required. . Normal [facility] CARDIAC HONG ADMITon 018 CKMB 1.33 ng/mL Normal <=2.37 [facility] Comment on above: Performed By: #### JANET LAWSON ####[facility] [address] [place] [address] Creatine kinase (CK) 361 U/L Critically high 55-170 [facility] Comment on above: Result Comment: TEST REPEATED. CRITICAL VALUE VERIFIED Performed By: #### JANET LAWSON ####[facility] [address] [place] [address] Camila INR Coag RelTime (Bld) SEE BELOW Normal [facility] Comment on above: Result Comment: <0.0 34 ng/ml NEGATIVE 0.034-0.119 INDETERMINATE 0.120 AMI CUT OFF Performed By: #### Jo BAJWA BMP ####[facility] [address] [place] [address] Camila JUAN 75.2 ng/mL Normal <=121.0 [facility] Comment on above: Performed By: #### JANET LAWSON ####[facility] [address] [place] [address] Camila TROP <0.012 Normal <=0.034 [facility] Comment on above: Performed By: #### Jo BAJWA BMP ####[facility] [address] [place] [address] Camila CBC AUTO DIFFon 02-10-2018 Basophils Auto #/vol (Bld) 0.1 103/ul Normal 0.0-0.1 [facility] Comment on above: Performed By: #### C BC ####[facility] [address] [place] [address] Camila Basophils/100 WBC Auto (Bld) 0.7 % Normal 0.2-2.0 [facility] Comment on above: Performed By: #### C BC ####[facility] [address] [place] [address] Camila Eosinophils 0.0 103/ul Normal 0.0-0.7 [facility] Comment on above: Performed By: #### C BC ####[facility] [address] [place] [address] Camila Eosinophils/100 leukocytes 0.2 % Critically low 0.9-7.0 [facility] Comment on above: Performed By: #### C BC ####[facility] [address] [place] [address] Camila Erythrocyte distribution width Auto Ratio (RBC) 12.5 % Normal 11.0-15.0 [facility] Comment on above: Performed By: #### C BC ####[facility] [address] [place] [address] Camila Erythrocytes (RBC) 5.26 106/ul Normal 4.70-6.10 [facility] Comment on above: Performed By: #### C BC ####[facility] X[address] [place] [address] Camila Hematocrit (HCT) 44.9 % Normal 42.0-54.0 [facility] Comment on above: Performed By: #### C BC ####[facility] [address] [place] [address] Camila Hemoglobin mass conc (Bld) 15.9 g/dL Normal 14.0-18.0 [facility] Comment on above: Performed By: #### C BC ####[facility] [address] [place] [address] Camila IG # 0.02 10e3/ul Normal 0.00-0.03 [facility] Comment on above: Performed By: #### C BC ####[facility] Ruavtuwoen[address] Camila IG % 0.2 % Normal 0.0-0.5 [facility] Comment on above: Performed By: #### C BC ####[facility] Txomkougoq[address] Camila Lymphocytes 1.6 103/ul Normal 1.2-3.8 [facility] Comment on above: Performed By: #### C BC ####[facility] [address] [place] [address] Camila Lymphocytes/100 leukocytes 16.8 % Critically low 20.5-60.0 [facility] Comment on above: Performed By: #### C BC ####[facility] [address] [place] [address] Camila MANUAL DIFF REQ NO Normal [facility] Comment on above: Performed By: #### C BC ####[facility] [address] [place] [address] Camila MCH 30.2 pg Normal 25.9-34.0 [facility] Comment on above: Performed By: #### C BC ####[facility] [address] [place] [address] Camila MCHC mass conc (RBC) 35.4 g/dL Critically high 29.9-35.2 [facility] Comment on above: Performed By: #### C BC ####[facility] [address] [place] [address] Camila MCV 85.4 fL Normal 80.0-94.0 [facility] Comment on above: Performed By: #### C BC ####[facility] Z[address] [place] [address] Camila Monocytes 1.3 103/ul Critically high 0.3-0.8 [facility] Comment on above: Performed By: #### C BC ####[facility] [address] [place], [place] [address]Udzpzw Camila Monocytes/100 leukocytes 13.7 % Critically high 1.7-12.0 [facility] Comment on above: Performed By: #### C BC ####[facility] [address] [place], [place] [address]Pioslz Camila Neutrophils 6.5 103/ul Normal 1.4-6.5 [facility] Comment on above: Performed By: #### C BC ####[facility] R[address]87[address] [place], [place] [address]O[place]oe Camila Neutrophils/100 WBC Auto (Bld) 68.4 % Normal 43.0-75.0 [facility] Comment on above: Performed By: #### C BC ####[facility] [address]6136 [place], [place] [address]Frkzmv Karen Platelet mean volume (PMV) 8.8 fL Critically low 9.5-13.5 [facility] Comment on above: Performed By: #### C BC ####[facility] [address] [place] [address]Ltgqvo Camila Platelets 174 103/ul Normal 150-450 [facility] Comment on above: Performed By: #### C BC ####[facility] [address] [place], [place] [address]Wgwgub Camila WBC (Leukocytes) 9.5 103/ul Normal 4.0-11.0 [facility] Comment on above: Performed By: #### C BC ####[facility] [address] [place] [address]Sxbgew Camila D-DIMERon 02-10-2018 D-DIMER COMMENTS SEE BELOW Normal [facility] Comment on above: Result Comment: Incr eases in D-Dimer concentration observed with thromboembolic events can be variable due to localization, size, and age of the thrombus. Therefore, a thromboembolic event cannot be diagnosed with certainty on the basis of the reference range. D-Dimers may also be elevated for a variety of disorders including: advanced age, , coronary disease, cancer, liver disease, infection, inflammation, hematoma, DIC, trauma, post-surgery, diabetes, thrombolytic or anticoagulant therapy, stress, and generalizd hospitalization. Performed By: #### D DIM ####[facility] [address] [place] [address] Fibrin D-dimer FEU 0.34 ug/mL Normal 0.19-0.50 [facility] Comment on above: Performed By: #### D DIM ####[facility] [address] [place] [address] DRUG SCREEN RAPID (URINE)on 02-10-2018 AMP Negative Normal NEGATIVE [facility] Comment on above: Performed By: #### D RUGRPD ####[facility] [address] [place] [address] BAR Negative Normal NEGATIVE [facility] Comment on above: Performed By: #### D RUGRPD ####[facility] [address] [place] [address] BUP Negative Normal NEGATIVE [facility] Comment on above: Performed By: #### D RUGRPD ####[facility] [address] [place] [address] BZO Negative Normal NEGATIVE [facility] Comment on above: Performed By: #### D RUGRPD ####[facility] [address] [place] [address] MARY Negative Normal NEGATIVE [facility] Comment on above: Performed By: #### D RUGRPD ####[facility] [address] [place] [address] CUT-OFFS SEE BELOW Normal [facility] Comment on above: Result Comment: AMP (Amphetamine): 500ng/mL, BAR (Barbituates): 200 ng/mL, BZO (Benzodiazepines): 150 ng/mL, BUP (Buprenorphine): 10 ng/mL, MARY (Cocaine): 150 ng/mL, mAMP (Methamphetamine): 500 ng/mL, MTD (Methadone): 200 ng/mL, OPI (Opiates): 100 ng/mL or 2000 ng/mL, OXY (Oxycodone): 100 ng/mL, PCP (Phencyclidine): 25 ng/mL, PPX (Propoxyphene): 300 ng/mL, THC (Cannabinoids): 50 ng/mL, TCA (Trycyclic Antidepressants): 300 ng/mL Performed By: #### August RUGRPD ####[facility] O[address]ki[address] DRUG CUT HEADER DRUG CLASS TEST SYST EM CUT-OFF CONCENTRATIONS ARE FOLLOWS: Normal [facility] Comment on above: Performed By: #### August RUGRPD ####[facility] Ysitkmsghg26[address] Camila mAMP Negative Normal NEGATIVE [facility] Comment on above: Performed By: #### August RUGRPD ####[facility] [address] [place] [address] Camila MTD Negative Normal NEGATIVE [facility] Comment on above: Performed By: #### August YOSTD ####[facility] [address] [place] [address] Camila OPI Negative Normal NEGATIVE [facility] Comment on above: Performed By: #### August TRIVEDIRPD ####[facility] [address] [place] [address] Camila OXY Negative Normal NEGATIVE [facility] Comment on above: Performed By: #### August YOSTD ####[facility] [address] [place] [address] Camila PCP Negative Normal NEGATIVE [facility] Comment on above: Performed By: #### August TRIVEDIRPD ####[facility] Vpcv[address]rc[address] Camila PPX Negative Normal NEGATIVE [facility] Comment on above: Performed By: #### uAgust RUGRPD ####[facility] [address] [place], [place] [address] TCA Negative Normal NEGATIVE [facility] Comment on above: Performed By: #### August YOSTD ####[facility] [address] [place] [address] Camila THC Negative Normal NEGATIVE [facility] Comment on above: Performed By: #### D SARA ####[facility] [address] [place] [id number] Camila PROF CHEM 8 (BAS METB)on Anion gap 13.7 mmol/L Normal [facility] Comment on above: Performed By: #### C GARETT, BMP ####[facility] Afycudwxex[address] Camila BUN/Creatinine Ratio 17.3 mg/mg Normal [facility] Comment on above: Performed By: #### C GARETT, BMP ####[facility] Tqn[address]ugiux[address] Camila Calcium 9.8 mg/dL Normal 8.4-10.2 [facility] Comment on above: Performed By: #### Jo BAJWA, BMP ####[facility] [address] [place] [address] Camila Chloride 100 mmol/L Normal 98-107 [facility] Comment on above: Performed By: #### C GARETT, BMP ####[facility] Jj[address]oslc[address] Camila CO2 24.0 mmol/L Normal 22.0-30.0 [facility] Comment on above: Performed By: #### C GARETT, BMP ####[facility] [address] [place] [address] Camila Creatinine 1.13 mg/dL Normal 0.66-1.25 [facility] Comment on above: Performed By: #### C GARETT, BMP ####[facility] [address] [place] [id number] Camila eGFR (non-black) mL/min/{1.73_m2} Normal >=60 [facility] Comment on above: Performed By: #### C GARETT, BMP ####[facility] K[address]llo[address] Camila Glucose mass conc 107 mg/dL Critically high 74-106 [facility] Comment on above: Performed By: #### Jo BAJWA, BMP ####[facility] [address] [place], [place] [address]Emhzky Camila Potassium molar conc 3.1 mmol/L Critically low 3.4-5.0 [facility] Comment on above: Performed By: #### C GARETT, BMP ####[facility] [address] [place], [place] [address]Gqogzq Camila Sodium 135 mmol/L Critically low 137-145 [facility] Comment on above: Performed By: #### C GARETT, BMP ####[facility] [address]60[address] [place], [place] [address]Eagwaq Camila Urea nitrogen 20.0 mg/dL Normal 9.0-20.0 [facility] Comment on above: Performed By: #### C GARETT, BMP ####[facility] [address] [place], [place] [address]Shsrqs Camila XR CHEST 1 Von 02-10-2018 XR CHEST 1 V [address] [place] [address] Patient: YOLANDA KRAMER V. Exam Date: 02/10/2018DOB: 1990 Gender:M : TAI LANIER Admission #: [id number] : Order #: [id number] HERE TO VIEW EXAM RADIOLOGY REPORT PROCEDURE: RADIOGRAPH CHEST 1 VIEW COMPARISON: None. INDICATIONS: Acute chest pain today FINDINGS: LUNGS: No significant pulmonary parenchymal abnormalities. VASCULATURE: No increased pulmonary vasculature. PLEURA: No pneumothorax, effusion, or pleural thickening. CARDIAC: No cardiomegaly or cardiac silhouette abnormality. MEDIASTINUM: No visible mass or adenopathy. BONES: No fracture or visible bone lesion. OTHER: Negative. CONCLUSION: No acute disease. Dictated by: Charles Cruz M.D. on 02/10/2018 at 07:45 Approved by: Charles Cruz M.D. on 02/10/2018 at 07:46 Normal [facility] Clinical Note 06-05-2021 Note Date & Type Note Facility 06-05-2021 Note Urology Vasectomy Vasectomy is a procedure in which the tube that carries sperm from the testicle to the urethra (vas deferens) is tied. It may also be cut. The procedure blocks sperm from going through the vas deferens and penis during ejaculation. This ensures that sperm does not go into the vagina during sex. Vasectomy does not affect your sexual desire or performance, and does not prevent sexually transmitted diseases. Vasectomy is considered a permanent and very effective form of control (contraception). The decision to have a vasectomy should not be made during a stressful situation, such as after the loss of a or a divorce. You and your partner should make the decision to have a vasectomy when you are sure that you do not want children in the future. Tell a health care provider about: ? Any allergies you have. ? All medicines you are taking, including vitamins, herbs, eye drops, creams, and abua-foo-xtaqstj medicines. ? Any problems you or family members have had with anesthetic medicines. ? Any blood disorders you have. ? Any surgeries you have had. ? Any medical conditions you have. What are the risks? Generally, this is a safe procedure. However, problems may occur, including: ? Infection. ? Bleeding and swelling of the scrotum. ? Allergic reactions to medicines. ? Failure of the procedure to prevent . There is a very small chance that the cut ends of the vas deferens may reconnect (recanalization), meaning that you could still make a woman . ? Pain in the scrotum that continues after healing from the procedure. What happens before the procedure? ? Ask your health care provider about: ? Changing or stopping your regular medicines. This is especially important if you are taking diabetes medicines or blood thinners. ? Taking xntv-kyh-opolnly medicines, vitamins, herbs, and supplements. ? Taking medicines such as aspirin and ibuprofen. These medicines can thin your blood. Do not take these medicines unless your health care provider tells you to take them. ? You may be asked to shower with a germ-killing soap. ? Plan to have someone take you home from the hospital or clinic. What happens during the procedure? ? To lower your risk of infection: ? Your health care team will wash or sanitize their hands. ? Hair may be removed from the surgical area. ? Your scrotum will be washed with soap. ? You will be given one or more of the following: ? A medicine to help you relax (sedative). You may be instructed to take this a few hours before the procedure. ? A medicine to numb the area (local anesthetic). ? Your health care provider will feel (palpate) for your vas deferens. ? To reach the vas deferens, one of two methods may be used: ? A very small incision may be made in your scrotum. ? A punctured opening may be made in your scrotum, without an incision. ? Your vas deferens will be pulled out of your scrotum, and may be: ? Tied off. ? Cut and possibly burned (cauterized) at the ends to seal them off. ? The vas deferens will be put back into your scrotum. ? The incision or puncture opening will be closed with absorbable stitches (sutures). The sutures will eventually dissolve and will not need to be removed after the procedure. The procedure may vary among health care providers and hospitals. What happens after the procedure? ? You will be monitored to make sure that you do not experience problems. ? You will be asked not to ejaculate for at least 1 week after the procedure, or as long as directed. ? You will need to use a different form of contraception for 2?4 months after the procedure, until you have test results confirming that there are no sperm in your semen. ? You may be given scrotal support to wear, such as a jock strap or underwear with a supportive pouch. ? Do not drive for 24 hours if you were given a sedative to help you relax. Summary ? Vasectomy is considered a permanent and very effective form of control (contraception). The procedure prevents sperm from being released during ejaculation. ? Your scrotum will be numbed with medicine (local anesthetic) for the procedure. ? After the procedure, you will be asked not to ejaculate for at least 1 week, or for as long as directed. You will also need to use a different form of contraception until your health care provider examines you and finds that there are no sperm in your semen. This information is not intended to replace advice given to you by your health care provider. Make sure you discuss any questions you have with your health care provider. Document Released: 11/06/2003 Document Revised: 02/17/2019 Document Reviewed: 11/12/2017 [employer] Patient Education ? 2020 [employer]. Vasectomy, Care After This sheet gives you information about how to care for yourself after your procedure. Your health care provider may also give you more specific instructions. If y (more content not included)... [facility] Clinical Note 04-29-2021 Note Date & Type Note Facility 04-29-2021 Note Chief Complaint Pt is here for a vasectomy evaluation HPI Staff Yolanda is a 30 y.o. male new patient here for a vasectomy consultation. Pt has 3 kids and wants no more. Dysuria: denies Incomplete bladder emptying: denies Hematuria: denies Frequency: denies Urgency: denies Nocturia: denies Stream: steady stream Leaking: denies Post void dripping: denies Wearing pads/ Depends: denies Urge incontinence: denies Stress incontinence: denies Incontinence without Sensory Awareness: denies Abdominal pain: denies Flank pain: denies Sexual complaints: _ History of Present Illness reviewed UA and medical history. no associated fever, chills, blood or pain. Review of Systems PHQ Score Initial Depression Screen Score: 0 Physical Exam Vitals & Measurements HR: 68(Peripheral) BP: 132/86 HT: 182 cm HT: 182.0 cm WT: 89.7 kg WT: 89.7 kg BMI: 27.08 General Appearance: alert, no distress, well nourished, well developed male. Head: normocephalic . Eyes: normal orbit and globe. ENMT: normal examination of external ears. Chest: Lungs CTA, respirations non labored. Cardiovascular: regular rate and rhythm. Abdomen: soft, non distended, no tenderness, no mass or organomegaly, no hernia. Genitourinary: normal scrotum, normal testes, normal urethra, normal epididymis, normal vas deferens/spermatic cord. Flank Pain: none. Bladder: nonpalpable. Penis: normal shaft, normal glans. Lymph Nodes: unremarkable palpation of the cervical area. Skin: warm, dry, no bruising. Psychiatric: cooperative, affect appropriate for age, normal judgement, euthymic mood. Assessment/Plan 1. Vasectomy evaluation (Z30.09: Encounter for other general counseling and advice on contraception) will schedule vasectomy. The patient was given a full consultation regarding the different techniques of sterilization. We discussed in detail that sterilization should be considered as an irreversible procedure. He understands the different techniques that can be performed on either the man or the woman. We also discussed in general the different techniques and methods used for control. Follow-up No qualifying data available Patient Education Vasectomy I, Safia Betancur, personally scribed for Dr. Schumacher on 04/29/2021 14:35:32. . Documentation recorded by the scribe, Safia Betancur, accurately reflects the services(s) I performed and decisions made by me. Authenticated by Dr. Schumacher on 04/29/2021 16:48:49. Problem List/Past Medical History Ongoing Vasectomy evaluation Historical No qualifying data Medications No active medications Allergies No Known Medication Allergies Social History Tobacco Never (less than 100 in lifetime) Tobacco Use:. Never Smokeless Tobacco Use:., 04/29/2021 Family History Arthritis: Mother. Heart disease: Father. High cholesterol: Father. Hypertension: Mother and Father. Lab Results Ambulatory Point of Care Results Bilirubin Urine Dipstick: Negative (04/29/21 14:10:00) Blood Urine Dipstick: Negative (04/29/21 14:10:00) Glucose Urine Dipstick: Negative (04/29/21 14:10:00) Ketones Urine Dipstick: Negative (04/29/21 14:10:00) Leukocytes Urine Dipstick: Negative (04/29/21 14:10:00) Nitrite Urine Dipstick: Negative (04/29/21 14:10:00) Protein Urine Dipstick: Negative (04/29/21 14:10:00) Specific [place] Urine Dipstick: >=1.030 (04/29/21 14:10:00) Urine Appearance Urine Dipstick: Clear (04/29/21 14:10:00) Urine Color Urine Dipstick: Yellow (04/29/21 14:10:00) Urobilinogen Urine Dipstick: Normal 0.2-1 EU/dl (04/29/21 14:10:00) pH Urine Dipstick: 5.5 (04/29/21 14:10:00) [facility] Comment on above: Result Comment: Elec tronically Signed By: WINSOME BENITO, Barrington Gamboa\.br\Date and Time Signed: 04/29/21 16:48 EDT\.br\Electronically Co-Signed By: Safia Betancur\.br\Date and Time Co-Signed: 04/29/21 14:35 EDT Clinical Note 04-29-2021 Note Date & Type Note Facility 04-29-2021 Note Urology Vasectomy Vasectomy is a procedure in which the tube that carries sperm from the testicle to the urethra (vas deferens) is tied. It may also be cut. The procedure blocks sperm from going through the vas deferens and penis during ejaculation. This ensures that sperm does not go into the vagina during sex. Vasectomy does not affect your sexual desire or performance, and does not prevent sexually transmitted diseases. Vasectomy is considered a permanent and very effective form of control (contraception). The decision to have a vasectomy should not be made during a stressful situation, such as after the loss of a or a divorce. You and your partner should make the decision to have a vasectomy when you are sure that you do not want children in the future. Tell a health care provider about: ? Any allergies you have. ? All medicines you are taking, including vitamins, herbs, eye drops, creams, and lfuq-jnt-tyevork medicines. ? Any problems you or family members have had with anesthetic medicines. ? Any blood disorders you have. ? Any surgeries you have had. ? Any medical conditions you have. What are the risks? Generally, this is a safe procedure. However, problems may occur, including: ? Infection. ? Bleeding and swelling of the scrotum. ? Allergic reactions to medicines. ? Failure of the procedure to prevent . There is a very small chance that the cut ends of the vas deferens may reconnect (recanalization), meaning that you could still make a woman . ? Pain in the scrotum that continues after healing from the procedure. What happens before the procedure? ? Ask your health care provider about: ? Changing or stopping your regular medicines. This is especially important if you are taking diabetes medicines or blood thinners. ? Taking bfex-emw-nkwzren medicines, vitamins, herbs, and supplements. ? Taking medicines such as aspirin and ibuprofen. These medicines can thin your blood. Do not take these medicines unless your health care provider tells you to take them. ? You may be asked to shower with a germ-killing soap. ? Plan to have someone take you home from the hospital or clinic. What happens during the procedure? ? To lower your risk of infection: ? Your health care team will wash or sanitize their hands. ? Hair may be removed from the surgical area. ? Your scrotum will be washed with soap. ? You will be given one or more of the following: ? A medicine to help you relax (sedative). You may be instructed to take this a few hours before the procedure. ? A medicine to numb the area (local anesthetic). ? Your health care provider will feel (palpate) for your vas deferens. ? To reach the vas deferens, one of two methods may be used: ? A very small incision may be made in your scrotum. ? A punctured opening may be made in your scrotum, without an incision. ? Your vas deferens will be pulled out of your scrotum, and may be: ? Tied off. ? Cut and possibly burned (cauterized) at the ends to seal them off. ? The vas deferens will be put back into your scrotum. ? The incision or puncture opening will be closed with absorbable stitches (sutures). The sutures will eventually dissolve and will not need to be removed after the procedure. The procedure may vary among health care providers and hospitals. What happens after the procedure? ? You will be monitored to make sure that you do not experience problems. ? You will be asked not to ejaculate for at least 1 week after the procedure, or as long as directed. ? You will need to use a different form of contraception for 2?4 months after the procedure, until you have test results confirming that there are no sperm in your semen. ? You may be given scrotal support to wear, such as a jock strap or underwear with a supportive pouch. ? Do not drive for 24 hours if you were given a sedative to help you relax. Summary ? Vasectomy is considered a permanent and very effective form of control (contraception). The procedure prevents sperm from being released during ejaculation. ? Your scrotum will be numbed with medicine (local anesthetic) for the procedure. ? After the procedure, you will be asked not to ejaculate for at least 1 week, or for as long as directed. You will also need to use a different form of contraception until your health care provider examines you and finds that there are no sperm in your semen. This information is not intended to replace advice given to you by your health care provider. Make sure you discuss any questions you have with your health care provider. Document Released: 11/06/2003 Document Revised: 02/17/2019 Document Reviewed: 11/12/2017 [employer] Patient Education ? 2020 [facility] Summary Purpose Family History No Family History Records FoundNo Family History Records Found Advance Directives No Advanced Directives Records FoundNo Advanced Directives Records Found Additional Source Comments (unrecognized sect ion and content) No Status Records FoundNo Status Records Found INFORMATION SOURCE (unrecogn ized section and content) DATE CREATED AUTHOR 03/04/2018 [facility] DATE CREATED AUTHOR AUTHOR'S ORGANIZ ATION 07/03/2021 [facility] FOR RECORDS PERTAINING TO PATIENTS WHO ARE OR HAVE BEEN ENROLLED IN A CHEMICAL DEPENDENCY/SUBSTANCEABUSE PROGRAM, SOME INFORMATION MAY BE OMITTED. This clinical summary was aggregated from multiple sources. Caution should be exercised in using it in the provision of clinical care. This summary normalizes information from multiple sources, and as a consequence, information in this document may materially change the coding, format and clinical context of patient data. In addition, data may be omitted in some cases. CLINICAL DECISIONS SHOULD BE BASED ON THE PRIMARY CLINICAL RECORDS. [employer] provides no warranty or guarantee of the accuracy or completeness of information in this document.
[2024-03-30 03:41] VITALS: BP 126/77; PULSE 82; TEMP 37.6; O2SAT 97; BMI 25.1
--- NOTE | 2024-03-30 03:52 | ED_ITS ---
HPI HPI - General Adult General Chief complaint: Headache Stated complaint: HEADACHE FEVER Time Seen by Provider: 03/30/24 03:48 Source: patient Mode of arrival: walk-in Limitations: no limitations History of Present Illness HPI narrative: 33-year-old male presents for 5-day history of headache and bodyaches. He has been nauseous and has thrown up only once. His and children are not ill. He has not been coughing much. No diarrhea or skin rash. He does not have a sore throat. He has not been able to eat or drink much for the past 5 days. Related Data Previous Rx's ?Medication ?Instructions ?Recorded ondansetron 4 mg disintegrating 4 mg PO Q6H PRN nausea and 03/30/24 tablet vomiting #20 tabs Allergies Allergy/AdvReac Type Severity Reaction Status Date / Time No Known Drug Allergies Allergy Verified 03/30/24 03:47 Opioid HPI Opioid Management Most Recent Opioid Data: Last Pain Scale 9 03/30/24 04:32 Last MAR Pain Assessment 03/30/24 04:32 Review of Systems ROS Narrative A ten point review of systems is negative except as noted above. Exam Narrative Exam Narrative: Nurses note and vital signs reviewed and patient is not hypoxic. General: The patient appears well and in no apparent distress. Skin: Warm, dry, no pallor noted. There is no rash noted. Head: Normocephalic, atraumatic; neck supple, no nuchal rigidity Eye: Normal conjunctiva, no drainage Ears, Nose, Mouth, and Throat: oral mucosa is moist. Nares patent. Mouth without vesicles. No pharyngeal exudate or erythema Cardiovascular: Regular Rate and Rhythm, not tachycardic Respiratory: Patient is in no distress, no accessory muscle use, lungs are clear to auscultation, no wheezing, rales or rhonchi Back: non-tender GI: Soft and nontender Musculoskeletal: No joint swelling Neurological: A&O, normal speech Psychiatric: Cooperative Constitutional Vital Signs, click to edit/add: Last Vital Signs Temp 99.7 F 03/30/24 03:41 Pulse 82 03/30/24 03:41 BP 126/77 03/30/24 03:41 Pulse Ox 97 03/30/24 03:41 O2 Del Method Room Air 03/30/24 03:41 Course Vital Signs Vital signs: Vital Signs Temperature 99.7 F 03/30/24 03:41 Pulse Rate 82 03/30/24 03:41 Blood Pressure 126/77 03/30/24 03:41 Pulse Oximetry 97 03/30/24 03:41 Oxygen Delivery Method Room Air 03/30/24 03:41 Temperature 99.7 F 03/30/24 03:41 Pulse Rate 82 03/30/24 03:41 Blood Pressure 126/77 03/30/24 03:41 Pulse Oximetry 97 03/30/24 03:41 Oxygen Delivery Method Room Air 03/30/24 03:41 Medical Decision Making MDM Narrative Medical decision making narrative: He did not have a fever here. Blood work indicates some mild dehydration. He was given IV fluids and Zofran and states he feels improved. He was able to rest, he has not been resting well at home. I have no clinical suspicion of meningitis. Treatment diagnosis and follow-up were discussed with the patient. Differential Diagnosis Differential Diagnosis: Dehydration, COVID, viral illness Lab Data Lab results reviewed: Yes I reviewed the patient's lab results Labs: Lab Results 03/30/24 03/30/24 Range/Units 04:20 04:22 WBC 8.4 (4.0-11.0) 10^3/uL RBC 4.85 (4.70-6.10) 10^6/uL Hgb 14.4 (14.0-18.0) g/dL Hct 42.1 (42.0-54.0) % MCV 86.8 (80.0-94.0) fL MCH 29.7 (25.9-34.0) pg MCHC 34.2 (29.9-35.2) g/dL RDW 13.3 (11.0-15.0) % Plt Count 133 L (150-450) 10^3/uL MPV 9.5 (9.5-13.5) fL Neut % (Auto) 74.0 (43.0-75.0) % Lymph % (Auto) 18.2 L (20.5-60.0) % [place] % (Auto) 6.2 (1.7-12.0) % Eos % (Auto) 0.7 L (0.9-7.0) % Baso % (Auto) 0.4 (0.2-2.0) % Neut # (Auto) 6.3 (1.4-6.5) 10^3/uL Lymph # (Auto) 1.5 (1.2-3.8) 10^3/uL [place] # (Auto) 0.5 (0.3-0.8) 10^3/uL Eos # (Auto) 0.1 (0.0-0.7) 10^3/uL Baso # (Auto) 0.0 (0.0-0.1) 10^3/uL Abs Immat Gran (auto) 0.04 H (0.00-0.03) 10^3/uL Imm/Tot Granulo (auto) 0.5 (0.0-0.5) % Sodium 140 (136-145) mmol/L Potassium 3.4 L (3.5-5.1) mmol/L Chloride 102 (98-107) mmol/L Carbon Dioxide 26.6 (21.0-32.0) mmol/L Anion Gap 14.8 BUN 19.0 H (7.0-18.0) mg/dL Creatinine 1.31 H (0.70-1.30) mg/dL Est GFR ( Amer) >60 (>=60) Est GFR (Non-Af Amer) >60 (>=60) BUN/Creatinine Ratio 14.5 Glucose 116 H (74-106) mg/dL Calcium 9.0 (8.5-10.1) mg/dL SARS-CoV-2 Ag (CV2AG) Negative (NEGATIVE) Discharge Plan Discharge Stand Alone Forms: Portal Instructions Chief Complaint: Headache Clinical Impression: Acute viral syndrome Patient Disposition: Home, Self-Care Time of Disposition Decision: 06:00 Condition: Good Mode of Transportation: Private Vehicle Prescriptions / Home Meds: New ondansetron 4 mg tablet,disintegrating 4 mg PO Q6H PRN (Reason: nausea and vomiting) Qty: 20 0RF Print Language: Tamazight Instructions: Viral Syndrome (ED) Referrals: Margie Roberto MD [Primary Care Provider] - 1 week
[2024-03-30 04:30] LABS: Basophils Percent Auto 0.4 % (0.2-2.0); Eosinophils Absolute Auto 0.1 10^3/uL (0.0-0.7); Eosinophils Percent Auto 0.7 % (0.9-7.0); Hematocrit 42.1 % (42.0-54.0); Hemoglobin 14.4 g/dL (14.0-18.0); Immature Granulocytes Abs Auto 0.04 10^3/uL (0.00-0.03); Immature Granulocytes Pct Auto 0.5 % (0.0-0.5); Lymphocytes Absolute Auto 1.5 10^3/uL (1.2-3.8); Lymphocytes Percent Auto 18.2 % (20.5-60.0); Mean Corpuscular HGB Conc 34.2 g/dL (29.9-35.2); Mean Corpuscular Hemoglobin 29.7 pg (25.9-34.0); Mean Corpuscular Volume 86.8 fL (80.0-94.0); Mean Platelet Volume 9.5 fL (9.5-13.5); Monocytes Absolute Auto 0.5 10^3/uL (0.3-0.8); Monocytes Percent Auto 6.2 % (1.7-12.0); Neutrophils Absolute Auto 6.3 10^3/uL (1.4-6.5); Platelet Count 133 10^3/uL (150-450); Red Blood Count 4.85 10^6/uL (4.70-6.10); Red Cell Distribution Width 13.3 % (11.0-15.0); White Blood Count 8.4 10^3/uL (4.0-11.0)
[2024-03-30] MEDS: 0.9 % SODIUM CHLORIDE 1,000 ML 1000 ML IV (04:31)
[2024-03-30] MEDS: ONDANSETRON PF 4 MG/2 ML VIAL IV (04:31)
[2024-03-30] MEDS: KETOROLAC TROMETHAMINE 30 MG/ML VIAL IVP (04:32)
[2024-03-30 04:38] LABS: Anion Gap 14.8; BUN Creatinine Ratio 14.5; Carbon Dioxide 26.6 mmol/L (21.0-32.0); Chloride 102 mmol/L (98-107); Estimated GFR (African America >60 (>=60); Estimated GFR (Non-African Ame >60 (>=60); Glucose 116 mg/dL (74-106); Potassium 3.4 mmol/L (3.5-5.1); Sodium 140 mmol/L (136-145)
[2024-03-30 04:41] LABS: Internal Control Within Normal Limits; SARS-CoV-2 Ag NEGATIVE (NEGATIVE)
== END 2024-03-30 06:21 | disposition home or self-care (01) ==
PROVIDERS: Emergency Provider Emergency Medicine; PCP Family Medicine
DX: B34.9 Viral infection, unspecified (principal)
CPT/HCPCS: 36415; 80048; 85025; 87811; 96361; 96374; 96375; 99284; J1885; J2405